=== PATIENT | male | born 1960 | race Caucasian/White ===

== ENCOUNTER 2020-03-25 11:42 | Emergency (ER) | payer OTHER ==
[~2020-03-25] VITALS: Ht 177.8 cm; Wt 120.5 kg
[~2020-03-25 11:42] MED LIST: ASPI81TA52 PO; ISOS30TA PO; LISI-600 PO; METF-900 PO; METO25TA6 PO; PANT-47 PO; SIMV10TA2 PO
[2020-03-25 12:28] LABS: CLARITY,URINE CLEAR (Clear); COLOR,URINE YELLOW (Yellow); GLUCOSE, URINE NEGATIVE (Neg); KETONES,URINE NEGATIVE (Neg); LEUKOCYTE ESTERASE ,URINE NEGATIVE (Neg); NITRITES, URINE NEGATIVE (Neg); OCCULT BLOOD,URINE MODERATE (Neg); PROTEIN,URINE NEGATIVE (Neg); UROBILINOGEN,URINE 0.2 E.U/dL (0.2-1.0)
[2020-03-25 12:32] LABS: UA COLLECTION TYPE CLN CATCH MIDSTREAM
[2020-03-25 12:33] LABS: BACTERIA,URINE NONE SEEN /HPF (Neg); MUCUS STRANDS NONE SEEN /LPF (Neg); SQUAMOUS EPITHELIAL CELL,UR NONE SEEN /LPF (FEW); WBC,URINE NONE SEEN /HPF (0-4)
[2020-03-25] MEDS ORDERED: normal saline 1000ML IV soln IVB ONE (13:15)
[2020-03-25] MEDS ORDERED: ondansetron/PF 4mg/2ml inj IV ONE (13:15)
[2020-03-25] MEDS ORDERED: morphine 4 MG/ML inj SYRINge IV PRN (13:15)
[2020-03-25] MEDS ORDERED: morphine 10mg/ml inj. IV ONE (13:25)
[2020-03-25 13:59] LABS: BASOPHILS # (AUTO) 0.1 X10'3 (0-0.2); BASOPHILS % (AUTO) 0.7 % (0-1); EOSINOPHILS # (AUTO) 0.2 X10'3 (0-0.9); EOSINOPHILS % (AUTO) 1.3 % (0-6); HEMATOCRIT 41.6 % (42.0-52.0); HEMOGLOBIN 14.2 g/dl (14.0-17.9); LYMPHOCYTES # (AUTO) 3.2 X10'3 (1.1-4.8); LYMPHOCYTES % (AUTO) 26.6 % (21-51); MEAN CORPUSCULAR HEMOGLOBIN 30.3 PG (27.0-31.0); MEAN CORPUSCULAR HGB CONC 34.3 g/dL (33.0-36.5); MEAN CORPUSCULAR VOLUME 88.6 FL (78-98); MEAN PLATELET VOLUME 8.4 FL (7.4-10.4); MONOCYTES # (AUTO) 0.9 X10'3 (0-0.9); NEUTROPHILS # (AUTO) 7.9 X10'3 (1.8-7.7); NEUTROPHILS % (AUTO) 64.4 % (42-75); PLATELET COUNT 312 X10'3 (140-440); RED BLOOD COUNT 4.69 X10'6 (4.70-6.10); RED CELL DISTRIBUTION WIDTH 13.6 % (11.5-14.5); WHITE BLOOD COUNT 12.2 X10'3 (4.5-11.0)
[2020-03-25 14:10] LABS: ALANINE AMINOTRANSFERASE 79 U/L (12-78); ALBUMIN 4.1 G/DL (3.4-5.0); ALBUMIN/GLOBULIN RATIO 1.2 (1.1-1.5); ALKALINE PHOSPHATASE 129 IU/L (46-116); ANION GAP 9 (8-16); ASPARTATE AMINO TRANSFERASE 22 U/L (10-37); BILIRUBIN,TOTAL 0.4 MG/DL (0.1-1.0); BLOOD UREA NITROGEN 21 MG/DL (7-18); BUN/CREATININE RATIO 21.6 (5.4-32.0); CALCIUM 9.4 MG/DL (8.5-10.1); CHLORIDE 102 MMOL/L (99-107); CREATININE 0.97 MG/DL (0.60-1.10); GLUCOSE 145 MG/DL (70-104); LIPASE 83 U/L (73-393); SODIUM 135 MMOL/L (135-145); TOTAL CARBON DIOXIDE 23.7 MMOL/L (24-32); TOTAL PROTEIN 7.5 G/DL (6.4-8.2); eGFR 79 ML/MIN
[2020-03-25] MEDS ORDERED: OXYC-481 PO (14:41)
[2020-03-25] MEDS ORDERED: FLO0.4C PO (14:41)
[2020-03-25 14:51] VITALS: BP 126/72
[2020-03-26] MEDS ORDERED: METF-438 PO (01:21)
[2020-03-26] MEDS ORDERED: FLO0.4C PO (01:21)
[2020-03-26] MEDS ORDERED: LOSA25TA41 PO (01:21)
[2020-03-26] MEDS ORDERED: OXYC-658 PO (01:21)
[2020-03-26] MEDS ORDERED: ATOR20TA PO (01:21)
[2020-03-26] MEDS ORDERED: ATOR-2 PO (11:44)
== END 2020-03-25 14:58 | disposition home or self-care (01) ==
LOC: ER 11:42
DX: N13.2 Hydronephrosis with renal and ureteral calculous obstruction (principal); R74.8 Abnormal levels of other serum enzymes; R91.1 Solitary pulmonary nodule; E78.00 Pure hypercholesterolemia, unspecified; I10 Essential (primary) hypertension; E11.9 Type 2 diabetes mellitus without complications; Z90.49 Acquired absence of other specified parts of digestive tract; Z98.890 Other specified postprocedural states; Z88.0 Allergy status to penicillin; Z79.82 Long term (current) use of aspirin; Z79.899 Other long term (current) drug therapy
CPT/HCPCS: 36415; 74176; 80053; 81001; 83690; 85025; 96361; 96374; 96375; 99284; J2270; J2405; J7030

== ENCOUNTER 2020-03-26 00:18 | Inpatient (IN) | payer OTHER ==
[2020-03-26] VITALS (19 sets, daily range): BP systolic 111–160; BP diastolic 58–89
[~2020-03-26] VITALS: Ht 177.8 cm; Wt 116.0 kg
[~2020-03-26 00:18] MED LIST changes: +FLO0.4C PO; +OXYC-481 PO
[2020-03-26] MEDS ORDERED: ondansetron/PF 4mg/2ml inj IV ONE (00:45)
[2020-03-26] MEDS ORDERED: morphine 4 MG/ML inj SYRINge IV ONE (00:45)
[2020-03-26] MEDS ORDERED: pantoprazole 40 MG vial IV ONE (01:15)
[2020-03-26] MEDS ORDERED: normal saline 1000ML IV soln IVB ONE (01:15)
[2020-03-26] MEDS ORDERED: LOSA25TA41 PO (01:21)
[2020-03-26] MEDS ORDERED: METF-438 PO (01:21)
[2020-03-26] MEDS ORDERED: FLO0.4C PO (01:21)
[2020-03-26] MEDS ORDERED: OXYC-658 PO (01:21)
[2020-03-26] MEDS ORDERED: ATOR20TA PO (01:21)
[2020-03-26] MEDS: morphine 2 MG/ML inj. syringe IV PRN ×4 (01:36→03:16)
[2020-03-26] MEDS ORDERED: morphine 2 MG/ML inj. syringe IV PRN ×3 (02:05→16:40)
[2020-03-26] MEDS ORDERED: mag hydrox/Alum hydrox/simeth 30ml oral suspension PO PRN (02:05)
[2020-03-26] MEDS ORDERED: magnesium hydroxide 30ml (MOM) UD suspension PO PRN (02:05)
[2020-03-26] MEDS ORDERED: ondansetron/PF 4mg/2ml inj IV PRN ×2 (02:05→16:40)
[2020-03-26] MEDS ORDERED: acetaminophen 325mg tablet PO PRN (02:05)
[2020-03-26] MEDS ORDERED: oxyCODONE IR 5mg (immed. release) tablet PO PRN (02:40)
[2020-03-26] MEDS: normal saline 1000ml 1,000 ML IV SCH ×2 (02:41→05:07)
--- NOTE | 2020-03-26 04:20 | NUR ---
Received report from Edy FRAZIER from the ER. Patient arrived on unit at 0323 in a wheelchair, NS , a/o, vss no sign of distress will continue to monitor
--- NOTE | 2020-03-26 06:19 | NUR ---
Problems reprioritized. Patient report given, questions answered & plan of care reviewed with Micaela FRAZIER.
--- NOTE | 2020-03-26 06:26 | NUR ---
Patient in room [facility]. I have received report from FREDDIE BIRD and had the opportunity to ask questions and assume patient care.
[2020-03-26] MEDS ORDERED: glucagon, human recombinant 1mg kit SUBCUT PRN (06:45)
[2020-03-26] MEDS ORDERED: dextrose ORAL solution 15 GM/59 ML bottle PO PRN ×2 (06:45)
[2020-03-26] MEDS ORDERED: insulin Lispro (HumaLOG) vial - multi-dose SQ SCH (06:45)
[2020-03-26] MEDS ORDERED: dextrose 50%-water 50ml dispensing syringe IV PRN ×2 (06:45)
[2020-03-26] MEDS: aspirin 81mg tablet.DR PO SCH (08:00)
[2020-03-26] MEDS: morphine 4 MG/ML inj SYRINge IV PRN ×2 (09:25→14:00)
[2020-03-26] MEDS: metoprolol tartrate 25mg tablet PO SCH ×2 (09:41→21:37)
[2020-03-26] MEDS: ondansetron/PF 4mg/2ml inj IV PRN ×2 (09:41→13:58)
[2020-03-26] MEDS: losartan 25mg tablet PO SCH (09:41)
[2020-03-26] MEDS: metFORMIN 500mg tablet PO SCH ×2 (09:42→21:44)
[2020-03-26] MEDS: tamsulosin 0.4mg capsule PO SCH (09:42)
[2020-03-26] MEDS ORDERED: ATOR-2 PO (11:44)
[2020-03-26 16:23] LABS: BASOPHILS # (AUTO) 0.1 X10'3 (0-0.2); BASOPHILS % (AUTO) 0.5 % (0-1); EOSINOPHILS % (AUTO) 0.2 % (0-6); HEMOGLOBIN 12.7 g/dl (14.0-17.9); LYMPHOCYTES # (AUTO) 2.3 X10'3 (1.1-4.8); LYMPHOCYTES % (AUTO) 16.5 % (21-51); MEAN CORPUSCULAR HEMOGLOBIN 29.7 PG (27.0-31.0); MEAN CORPUSCULAR HGB CONC 33.3 g/dL (33.0-36.5); MEAN CORPUSCULAR VOLUME 89.1 FL (78-98); MEAN PLATELET VOLUME 8.1 FL (7.4-10.4); MONOCYTES # (AUTO) 1.4 X10'3 (0-0.9); MONOCYTES % (AUTO) 10.2 % (2-12); NEUTROPHILS # (AUTO) 10.1 X10'3 (1.8-7.7); NEUTROPHILS % (AUTO) 72.6 % (42-75); PLATELET COUNT 256 X10'3 (140-440); RED BLOOD COUNT 4.27 X10'6 (4.70-6.10); RED CELL DISTRIBUTION WIDTH 13.6 % (11.5-14.5); WHITE BLOOD COUNT 13.8 X10'3 (4.5-11.0)
--- NOTE | 2020-03-26 16:35 | NUR ---
DM Consult, Hgb A1c 7.7%; needs written DM education handout with verbal review. Attempted bedside visit 3 times, pt unavailable d/t being on telephone with family then with nursing staff for care. Will attempt DM education another time prior to discharge. Addendum: 03/26/20 at [address] Amended: Links added.
[2020-03-26 16:37] LABS: PARTIAL THROMBOPLASTIN TIME 28 SECONDS (22-32)
[2020-03-26 16:40] LABS: ALANINE AMINOTRANSFERASE 67 U/L (12-78); ALBUMIN 3.6 G/DL (3.4-5.0); ALBUMIN/GLOBULIN RATIO 1.1 (1.1-1.5); ALKALINE PHOSPHATASE 111 IU/L (46-116); ANION GAP 9 (8-16); ASPARTATE AMINO TRANSFERASE 20 U/L (10-37); BILIRUBIN,TOTAL 0.5 MG/DL (0.1-1.0); BLOOD UREA NITROGEN 20 MG/DL (7-18); BUN/CREATININE RATIO 16.3 (5.4-32.0); CALCIUM 8.7 MG/DL (8.5-10.1); CHLORIDE 105 MMOL/L (99-107); CREATININE 1.23 MG/DL (0.60-1.10); GLUCOSE 123 MG/DL (70-104); SODIUM 138 MMOL/L (135-145); TOTAL CARBON DIOXIDE 24.1 MMOL/L (24-32); TOTAL PROTEIN 6.8 G/DL (6.4-8.2); eGFR 60 ML/MIN
[2020-03-26] MEDS ORDERED: meperidine/PF 25mg/ml syringe IV PRN ×3 (16:40)
[2020-03-26] MEDS ORDERED: ringers solution, lacted 1,000 ML IV SCH (16:40)
[2020-03-26] MEDS ORDERED: proCHLORperazine 10 MG/2 ml inj IV PRN (16:40)
[2020-03-26] MEDS ORDERED: morphine 4 MG/ML inj SYRINge IV PRN (16:40)
[2020-03-26] MEDS ORDERED: sevoflurane 250ml liquid IH ONE (16:44)
[2020-03-26] MEDS ORDERED: dexamethasone sod phosphate 10mg/ml inj ONE (16:44)
[2020-03-26] MEDS ORDERED: midazolam 2 mg/2 ml injection ONE (16:47)
[2020-03-26] MEDS ORDERED: fentaNYL/PF 50MCG/1 ML 2ML syringe ONE (16:47)
[2020-03-26] MEDS ORDERED: levoFLOXACIN-Levaquin 500mg/D5 100 ML IV ONE (16:58)
[2020-03-26] MEDS ORDERED: ondansetron/PF 4mg/2ml inj ONE (17:01)
[2020-03-26] MEDS ORDERED: succinylcholine 20mg/ml inj IV ONE (17:02)
[2020-03-26] MEDS ORDERED: propofol inj 20 ML IV ONE (17:02)
[2020-03-26] MEDS ORDERED: LIDOcaine 2% (20mg/ml) 5ml vial ONE (17:02)
[2020-03-26] MEDS ORDERED: rocuronium 10mg/ml inj IV ONE (17:19)
[2020-03-26] MEDS ORDERED: glycopyrrolate 0.2mg/ml inj ONE (17:19)
[2020-03-26] MEDS ORDERED: neostigmine methylsulfate 1 MG/ML 10ml vial ONE (17:19)
--- NOTE | 2020-03-26 17:35 | NUR ---
Received from OR via BED, accompanied by Anesthesiologist DR CONLEY and report given by Anesthesiologist. PT DROWSY, DENIES PAIN,NO S/S OF DISTRESS/DISCOMFORT. Addendum: 03/26/20 at 1758 by Lorri Nelson RN Amended: Links added.
--- NOTE | 2020-03-26 18:45 | NUR ---
Report called to receiving nurse. Transferred via BED, NO Belongings, BLL, CALL LIGHT GIVEN, SIDE RAILS UP X 2, RECEIVING RN AT BEDSIDE TO RECEIVE PT. Special Issues communicated to receiving nurse. YES. Addendum: 03/26/20 at 1847 by Lorri Nelson RN Amended: Links added.
--- NOTE | 2020-03-26 18:52 | NUR ---
Problems reprioritized. Patient report given, questions answered & plan of care reviewed with MONA RN.
[2020-03-26] MEDS ORDERED: atorvastatin 20mg tablet PO SCH (21:00)
[2020-03-26] MEDS ORDERED: insulin glargine (Lantus) pen - multi-dose SQ SCH (21:00)
[2020-03-27] VITALS: BP 122/62
[2020-03-27] MEDS: normal saline 1000ml 1,000 ML IV SCH (00:41)
[2020-03-27 04:00] VITALS: BP 133/67
[2020-03-27 05:27] LABS: BASOPHILS % (AUTO) 0.5 % (0-1); EOSINOPHILS # (AUTO) 0.1 X10'3 (0-0.9); HEMATOCRIT 35.6 % (42.0-52.0); LYMPHOCYTES # (AUTO) 2.7 X10'3 (1.1-4.8); LYMPHOCYTES % (AUTO) 28.1 % (21-51); MEAN CORPUSCULAR HEMOGLOBIN 30.1 PG (27.0-31.0); MEAN CORPUSCULAR HGB CONC 33.7 g/dL (33.0-36.5); MEAN CORPUSCULAR VOLUME 89.3 FL (78-98); MEAN PLATELET VOLUME 8.7 FL (7.4-10.4); MONOCYTES % (AUTO) 10.7 % (2-12); NEUTROPHILS # (AUTO) 5.7 X10'3 (1.8-7.7); NEUTROPHILS % (AUTO) 59.7 % (42-75); PLATELET COUNT 249 X10'3 (140-440); RED BLOOD COUNT 3.98 X10'6 (4.70-6.10); RED CELL DISTRIBUTION WIDTH 13.6 % (11.5-14.5); WHITE BLOOD COUNT 9.5 X10'3 (4.5-11.0)
[2020-03-27 05:28] LABS: ALBUMIN 3.1 G/DL (3.4-5.0); ANION GAP 7 (8-16); BLOOD UREA NITROGEN 17 MG/DL (7-18); BUN/CREATININE RATIO 14.4 (5.4-32.0); CALCIUM 8.5 MG/DL (8.5-10.1); CHLORIDE 106 MMOL/L (99-107); CREATININE 1.18 MG/DL (0.60-1.10); GLUCOSE 128 MG/DL (70-104); POTASSIUM 3.7 MMOL/L (3.5-5.1); SODIUM 139 MMOL/L (135-145); TOTAL CARBON DIOXIDE 25.8 MMOL/L (24-32); eGFR 63 ML/MIN
--- NOTE | 2020-03-27 06:30 | NUR ---
Patient in room [facility]. I have received report from FREDDIE Wheeler and had the opportunity to ask questions and assume patient care.
[2020-03-27 07:00] VITALS: BP 137/79
[2020-03-27] MEDS: losartan 25mg tablet PO SCH (07:41)
[2020-03-27] MEDS: tamsulosin 0.4mg capsule PO SCH (07:41)
[2020-03-27] MEDS: aspirin 81mg tablet.DR PO SCH (07:41)
[2020-03-27] MEDS: metFORMIN 500mg tablet PO SCH (07:41)
[2020-03-27 07:42] VITALS: BP_SYST 137
[2020-03-27] MEDS: metoprolol tartrate 25mg tablet PO SCH (07:42)
== END 2020-03-27 10:55 | disposition home or self-care (01) | DRG 661 ==
LOC: ER 00:19 → ED HOLD 02:05 → SUR 3N 03:20 → OBSVTOIN 14:00
PROVIDERS: ADMIT Family Medicine; ATTEND Internal Medicine
PROC: 0T768DZ Dilation of Right Ureter with Intraluminal Device, Via Natural or Artificial Opening Endoscopic (ICD-10-PCS; 2020-03-26)
PROC: 0TC68ZZ Extirpation of Matter from Right Ureter, Via Natural or Artificial Opening Endoscopic (ICD-10-PCS; principal; 2020-03-26 16:44)
DX: N13.2 Hydronephrosis with renal and ureteral calculous obstruction (principal); E11.9 Type 2 diabetes mellitus without complications; E78.00 Pure hypercholesterolemia, unspecified; E78.5 Hyperlipidemia, unspecified; I10 Essential (primary) hypertension; I25.10 Atherosclerotic heart disease of native coronary artery without angina pectoris; N40.0 Benign prostatic hyperplasia without lower urinary tract symptoms; Z79.84 Long term (current) use of oral hypoglycemic drugs; Z79.899 Other long term (current) drug therapy; Z90.49 Acquired absence of other specified parts of digestive tract; Z95.5 Presence of coronary angioplasty implant and graft; Z88.2 Allergy status to sulfonamides
CPT/HCPCS: 36415; 71045; 76000; 80048; 80053; 82948; 83036; 85025; 85610; 85730; 87081; 93005; 99285; A4618; C1758; C1769; C2617; C9113; G0378; J0330; J1100; J1815; J1956; J2001; J2250; J2270; J2405; J2704; J2710; J3010; J3490; J7030